=== PATIENT | male | born 1940 | race Caucasian/White ===

== ENCOUNTER 2023-11-28 08:32 | Emergency (ER) | payer OTHER, SELFPAY ==
[2023-11-28 08:35] VITALS: BP 171/72
[2023-11-28 08:36] VITALS: BP 171/72
[2023-11-28 08:40] VITALS: BMI 24.3
[2023-11-28 08:58] LABS: % Basophils 0.6 % (0-2); % Eosinophils 5.6 % (0-6); % Immature Granulocytes 0.4 % (0-0.5); % Lymphocytes 24.9 % (20.5-51.1); % Monocytes 9.5 % (1.7-9.3); Absolute Basophils 0.1 10^3/uL (0-0.2); Absolute Eosinophils 0.6 10^3/uL (0-0.7); Absolute Lymphocytes 2.7 10^3/uL (1.2-3.4); Absolute Neutrophils 6.4 10^3/uL (1.4-6.5); Hemoglobin 15.2 g/dL (13.0-18.0); Mean Corp Hgb Conc. 34.5 g/dL (33.0-37.0); Mean Corpuscular Hgb 32.2 pg (27.0-31.0); Mean Corpuscular Volume 93.2 fL (80.0-94.0); Mean Platelet Volume 12.2 fL (7.4-10.4); Nucleated Red Blood Cells % 0 % (-); Platelet Count 107 10^3/uL (130-400); Red Blood Cell Count 4.72 10^6/uL (4.70-6.10); Red Cell Dist. Width 12.4 % (11.5-14.5); White Blood Cell Count 10.8 10^3/uL (4.8-10.8)
[2023-11-28 09:00] VITALS: BP 150/79
[2023-11-28 09:25] LABS: Blood Urea Nitrogen 31 mg/dl (9-20); Calcium 9.6 mg/dl (8.4-10.2); Carbon Dioxide 26 mmol/L (22-30); Chloride 104 mmol/L (98-107); Estimated Creatinine Clearance 56 ml/min; Glucose 161 mg/dl (70-99); Sodium 141 mmol/L (135-145); eGFR > 60.00
[2023-11-28 10:00] VITALS: BP 158/81
[2023-11-28 11:00] VITALS: BP 173/73
--- NOTE | 2023-11-28 11:48 | ED.GENMED ---
History of Present Illness
General
Chief Complaint: Fainting/Passed Out
Source: patient and spouse
Exam Limitations: none
Time Seen by Provider: 11/28/23 08:34
History of Present Illness
History of Present Illness:
83-year-old male who presents after a syncopal episode in the bathroom. The patient states that he was urinating and got lightheaded. He then was on the ground and felt like he had to have a bowel movement. He admits he was having some abdominal
discomfort like he had to go to bathroom prior to this happening. He then went to sit up onto the toilet to have a bowel movement and fell again. States he did feel like he fell to his right flank. No shortness of breath. No abdominal pain. Did
suffer a laceration to his left forehead near where his glasses sit.
Past History
Past History
ED Past Medical History: CAD, HTN, Hypercholesterolemia and Other (Parkinson's, GERD, peptic ulcer disease)
ED Past Surgical History: Cardiac
Phy Exam
Physical Exam
Physical Exam:
CONSTITUTIONAL Patient alert and oriented to person, place and time. Well-appearing. Vital signs reviewed.
HEAD laceration noted to the area just medial to the left brow.
EYES eyelids normal to inspection, Pupils equally round and reactive to light, Extraocular muscles intact, Conjunctiva normal, Sclera normal.
NECK normal range of motion, Trachea midline, no jugular venous distention.
RESPIRATORY CHEST No respiratory distress noted, Chest expansion equal, Bilateral breath sounds clear.
CARDIOVASCULAR regular rate and rhythm, Heart sounds normal.
ABDOMEN abdomen nontender, Bowel sounds normal. No distention.
BACK normal inspection, no obvious deformities.
UPPER EXTREMITY range of motion normal, Motor strength normal, no cyanosis, no edema.
LOWER EXTREMITY range of motion normal, Motor strength normal, no cyanosis, no edema.
NEURO Speech normal, No focal motor deficits, [place] coma scale 15, Memory normal, Cranial Nerves intact to screening exam.
SKIN skin warm, dry, and normal in color.
PSYCHIATRIC patient oriented to person place and time, Normal affect.
Course
Orders/Labs/Results
Orders:
Orders
11/28/23 08:34
Electrocardiogram (*1) Urgent
Reason for Study: Syncope
EKG- Treatment ONCE
11/28/23 08:43
CT Head W/o Iv Contrast Urgent
Comment:
Reason For Exam: fall, syncope
11/28/23 08:49
Basic Metabolic Panel Urgent
Complete Blood Count/With Diff Urgent
Abnormal Lab Results
11/28/23
08:49
MCH 32.2 H pg
(27.0-31.0)
Plt Count 107 L 10^3/uL
(130-400)
MPV 12.2 H fL
(7.4-10.4)
Absolute Monos (auto) 1.0 H 10^3/uL
(0.1-0.6)
Monocytes % 9.5 H %
(1.7-9.3)
BUN 31 H mg/dl
(9-20)
Glucose 161 H mg/dl
(70-99)
11/28/23 08:49
11/28/23 08:49
Vital Signs
Initial and Last Documented VS:
Initial Vital Signs
Pulse Resp BP
65 15 171/72
11/28/23 08:35 11/28/23 08:35 11/28/23 08:35
Last Documented Vital Signs
Temp Pulse Resp BP Pulse Ox
97.6 F 55 15 173/73 98
11/28/23 08:36 11/28/23 11:00 11/28/23 11:00 11/28/23 11:00 11/28/23 10:09
Procedures
Laceration Closure
Face:
Status of Wound: clean
Size of Wound in cm: 1.5
Description of Wound Edges: ragged
Type of Closure: Dermabond-skin glue
MDM/Problems Addressed
MDM/Problems Addressed:
vasovagal syncope, head injury, facial laceration
*Radiology
Radiology exam reviewed: preliminary read by ED provider (no ICH) and radiology read reviewed
*Pulse Oximetry
Patient hypoxic: no
*EKG
Interpreted by ED Provider?: Yes
Interpretation: abnormal
Rate: normal
Rhythm: sinus
Egnar: left axis deviation
Ischemia: non-specific ST changes
*Vacuum Evaporation Operator Interpretation
Rate: normal
Interpretation: normal
Rhythm: sinus
*Critical Care Note
Total Time (30-74mins, 75-104mins- exclusive of procedures): Not Applicable
Data Reviewed
Source: patient and spouse
Patient Management
Escalation/DeEscalation of care consider admission/obs:
Patient appears well. Feels much better. Hemodynamically stable. Patient was ambulated and feels well. No associated chest pain or shortness of breath. No palpitations. Suspect vasovagal syncope while going to the bathroom.
ED Attending Note
-
Portions of this chart may have been created with voice recognition software.� Occasional wrong word or��sound alike� substitutions may have occurred due to the inherent limitations of voice recognition software.
Discharge Plan
Departure
Patient Disposition: Home (Routine Discharge)
Date of Disposition: 11/28/23
Time of Disposition: 11:48
Patient with high blood pressure during this ER visit?: Yes
Discharge Problem:
Syncope, Facial laceration
Instructions: Syncope (Fainting) (DC), Skin glue for minor cuts, BLOOD PRESSURE
Referrals:
Linda Allen MD [Family Provider] -
Activity Restrictions/Additional Instructions:
Return immediately for passing out episode, palpitations, chest pain, shortness of breath or any other concerns. Please see your doctor in the next 3 to 5 days for follow-up and reevaluation.
Interventions
Interventions:
*Risk Screen - Suicide Last Done: 11/28/23 08:40
*General Assessment Last Done: 11/28/23 08:43
*Neglect/Abuse Screening Last Done: 11/28/23 08:40
*ED COVID-19 Vaccine History Last Done: 11/28/23 08:40
ED- Cardiac Assessment Last Done: 11/28/23 08:40
ED- Neurological Assessment Last Done: 11/28/23 08:41
Discharge Date and Time
Print Language: [place]
[2023-11-28 11:55] VITALS: BP 149/77
== END 2023-11-28 12:04 | disposition home or self-care (01) ==
LOC: EMR 08:32
PROVIDERS: EMERGENCY PHYSICIAN Emergency Medicine; FAMILY PHYSICIAN Internal Medicine
DX: R55 Syncope and collapse (principal); S01.81XA Laceration without foreign body of other part of head, initial encounter; W19.XXXA Unspecified fall, initial encounter; I10 Essential (primary) hypertension
CPT/HCPCS: 99285; 12011; 70450; 80048; 85025; 93005

== ENCOUNTER 2023-12-11 20:07 | Emergency (ER) | payer OTHER, SELFPAY ==
[2023-12-11 20:10] VITALS: BP 146/83
[2023-12-11 20:28] LABS: % Basophils 0.2 % (0-2); % Eosinophils 0.3 % (0-6); % Immature Granulocytes 0.4 % (0-0.5); % Lymphocytes 8.7 % (20.5-51.1); % Monocytes 14.7 % (1.7-9.3); % Neutrophils 75.7 % (42.2-75.2); Absolute Immature Granulocytes 0.1 10^3/uL (0-0.05); Absolute Lymphocytes 1.1 10^3/uL (1.2-3.4); Absolute Monocytes 1.9 10^3/uL (0.1-0.6); Absolute Neutrophils 9.8 10^3/uL (1.4-6.5); Hemoglobin 13.9 g/dL (13.0-18.0); Mean Corp Hgb Conc. 34.8 g/dL (33.0-37.0); Mean Corpuscular Hgb 30.8 pg (27.0-31.0); Mean Corpuscular Volume 88.7 fL (80.0-94.0); Mean Platelet Volume 12.3 fL (7.4-10.4); Nucleated Red Blood Cells % 0 % (-); Platelet Count 97 10^3/uL (130-400); Red Blood Cell Count 4.51 10^6/uL (4.70-6.10); Red Cell Dist. Width 12.6 % (11.5-14.5); White Blood Cell Count 12.9 10^3/uL (4.8-10.8)
[2023-12-11 20:42] LABS: ALT (SGPT) 13 U/L (0-50); AST (SGOT) 33 U/L (17-59); Alkaline Phosphatase 54 U/L (38-126); Blood Urea Nitrogen 27 mg/dl (9-20); Calcium 9.3 mg/dl (8.4-10.2); Carbon Dioxide 20 mmol/L (22-30); Chloride 100 mmol/L (98-107); Glucose 150 mg/dl (70-99); Potassium 4.2 mmol/L (3.5-5.1); Sodium 136 mmol/L (135-145); Total Bilirubin 1.3 mg/dl (0.2-1.3); Total Protein 6.8 g/dl (6.3-8.2); eGFR > 60.00
--- NOTE | 2023-12-11 22:24 | ED.GENMED ---
History of Present Illness
General
Chief Complaint: Weakness
Time Seen by Provider: 12/11/23 22:24
History of Present Illness
History of Present Illness:
TIME OF INITIAL ENCOUNTER: 10:30 PM
HPI: The patient tested positive for COVID today. He was tested by his because of a cough. also says that he has not been acting right today and seems like he 'has been in the left field' has been hallucinating as well. The patient
offers no specific complaints. The says that he was here recently after a fall and had a CAT scan of the brain which was unremarkable for trauma.
EXAM:
GENERAL: Appears in no distress
HEENT: Moist oral mucosa
CARDIOVASCULAR: Regular rate and rhythm
PULMONARY: No respiratory distress, breathing is nonlabored, equal and clear breath sounds
ABDOMEN: Soft and nontender with no peritoneal signs
NEUROLOGIC: The patient has evidence of dementia, not oriented to month or place, strength is equal in all extremities
EXTREMITIES: Moves all extremities equally, no tenderness, no edema
PYSCHIATRIC: Very limited historian, poor insight and judgment
NUMBER AND COMPLEXITY OF PROBLEMS ADDRESSED AT THE ENCOUNTER
� Chronic conditions affecting care: Dementia, Parkinson's, hyperlipidemia, MD/CAD
� Acute Exacerbation and/or Progression of Chronic Illness: This is an acute problem
� Differential Diagnosis includes: Dehydration, PERFECTO, viral syndrome, psychosis, change in mental status due to viral syndrome
AMOUNT AND/OR COMPLEXITY OF DATA TO BE REVIEWED AND ANALYZED
� I performed an independent evaluation of and my interpretation is:
EKG:
CT:
X-rays: Chest x-ray shows no acute abnormality
Laboratory Studies: White count 12.9 mild lymphocytopenia noted, hemoglobin normal, bicarb 20, BUN 27
Other:
� Review of other/old records: I reviewed records, the patient was here 11/01/2023 after a fall and there was no intracranial hemorrhage by CT at that time
� Clinical information was obtained by an independent historian: I spoke to the
� Prescriptions/Medications Considered but not given: Consider/offered Paxlovid however the is concerned about potential medication interaction. We agreed to hold off on Paxlovid at this time.
� Further testing considered but not performed:
RISK OF COMPLICATIONS AND/OR MORBIDITY OR MORTALITY OF PATIENT MANAGEMENT
� Social determinants of health affecting care: Lives at home with
� Discussion with other providers:
� Escalation of care including admission/observation vs risk of discharge considered: Given the 's concern of increased confusion, will give IV fluids. I suspect the confusion is related to his age of 83 years and the fact
that he has a viral currently.
ANY OTHER UPDATES:
11:30 PM: The patient was given IV fluids. Chest x-ray clear. The reports improvement in his overall mental status. Room air sats hovered around 93 to 94% prior to discharge.
Past History
Past History
ED Past Medical History: CAD, HTN, Hypercholesterolemia and Other (Parkinson's, GERD, peptic ulcer disease)
ED Past Surgical History: Cardiac
Phy Exam
Physical Exam
Physical Exam:
See HPI
Course
Orders/Labs/Results
Orders:
Orders
12/11/23 20:18
Complete Blood Count/With Diff Urgent
Comprehensive Metabolic Panel Urgent
12/11/23 22:25
0.9% Sodium Chloride 1000 ml [Nss] 1,000 ml IV BOLUS
12/11/23 22:26
CR Chest Portable - 1 View Urgent
Comment:
Reason For Exam: positive COVID; leukocytosis
Reason Study Needs to be Portable: Unable to Transport
12/11/23 23:14
Ondansetron Injectable [Zofran] 4 mg .ROUTE .[facility]
12/11/23 23:15
Ondansetron Injectable [Zofran] 4 mg IV NOW STA
Abnormal Lab Results
12/11/23
20:18
WBC 12.9 H 10^3/uL
(4.8-10.8)
RBC 4.51 L 10^6/uL
(4.70-6.10)
Plt Count 97 L 10^3/uL
(130-400)
MPV 12.3 H fL
(7.4-10.4)
Abs Immat Gran (auto) 0.1 H 10^3/uL
(0-0.05)
Absolute Neuts (auto) 9.8 H 10^3/uL
(1.4-6.5)
Absolute Lymphs (auto) 1.1 L 10^3/uL
(1.2-3.4)
Absolute Monos (auto) 1.9 H 10^3/uL
(0.1-0.6)
Neutrophils % 75.7 H %
(42.2-75.2)
Lymphocytes % 8.7 L %
(20.5-51.1)
Monocytes % 14.7 H %
(1.7-9.3)
Carbon Dioxide 20 L mmol/L
(22-30)
BUN 27 H mg/dl
(9-20)
Glucose 150 H mg/dl
(70-99)
12/11/23 20:18
12/11/23 20:18
Vital Signs
Initial and Last Documented VS:
Initial Vital Signs
Temp Pulse Resp BP Pulse Ox
98.3 F 82 18 146/83 95
12/11/23 20:10 12/11/23 20:10 12/11/23 20:10 12/11/23 20:10 12/11/23 20:10
Last Documented Vital Signs
Temp Pulse Resp BP Pulse Ox
99.9 F 71 18 134/56 94
12/11/23 22:48 12/11/23 23:30 12/11/23 23:30 12/11/23 23:00 12/11/23 23:15
*Critical Care Note
Total Time (30-74mins, 75-104mins- exclusive of procedures): Not Applicable
ED Attending Note
-
Portions of this chart may have been created with voice recognition software.� Occasional wrong word or��sound alike� substitutions may have occurred due to the inherent limitations of voice recognition software.
Discharge Plan
Departure
Patient Disposition: Home (Routine Discharge)
Date of Disposition: 12/11/23
Time of Disposition: 23:35
Patient with high blood pressure during this ER visit?: Yes
Discharge Problem:
COVID-19
Instructions: COVID-19 ED
Referrals:
Linda Allen MD [Family Provider] -
Activity Restrictions/Additional Instructions:
Oxygen levels are fair and not low enough to require additional oxygen, white blood cell count is slightly high. BUN level is slightly high which could be seen with dehydration. We gave a liter of fluid. The chest x-ray shows no sign of
pneumonia. Return here if worse or any other concerns such as shortness of breath.
Interventions
Interventions:
*Risk Screen - Suicide Last Done: 12/11/23 20:13
*General Assessment Last Done: 12/11/23 20:10
*Neglect/Abuse Screening Last Done: 12/11/23 20:10
ED- Fall Risk Assessment Last Done: 12/11/23 22:47
ED- Cardiac Assessment Last Done: 12/11/23 22:47
ED- Neurological Assessment Last Done: 12/11/23 22:47
ED- Pulmonary Assessment Last Done: 12/11/23 22:47
Discharge Date and Time
Print Language: AZER[place]
[2023-12-11] MEDS: NSS 1000 IV (22:41)
[2023-12-11 22:42] VITALS: BP 139/56
[2023-12-11 23:00] VITALS: BP 134/56
[2023-12-11] MEDS: ZOFRAN 4 MG IV (23:15)
[2023-12-12] VITALS: BP 106/70
== END 2023-12-12 00:08 | disposition home or self-care (01) ==
LOC: EMR 20:07
PROVIDERS: Emergency Medicine; EMERGENCY PHYSICIAN Emergency Medicine; FAMILY PHYSICIAN Internal Medicine
DX: U07.1 COVID-19 (principal); F03.90 Unspecified dementia, unspecified severity, without behavioral disturbance, psychotic disturbance, mood disturbance, and anxiety; G20.A1 Parkinson's disease without dyskinesia, without mention of fluctuations; F02.80 Dementia in other diseases classified elsewhere, unspecified severity, without behavioral disturbance, psychotic disturbance, mood disturbance, and anxiety; I25.10 Atherosclerotic heart disease of native coronary artery without angina pectoris; E78.00 Pure hypercholesterolemia, unspecified; I10 Essential (primary) hypertension; K21.9 Gastro-esophageal reflux disease without esophagitis; I25.2 Old myocardial infarction; Z91.81 History of falling; Z87.11 Personal history of peptic ulcer disease; Z88.1 Allergy status to other antibiotic agents; Z88.0 Allergy status to penicillin
CPT/HCPCS: 99284; 96374; 96361; 71045; 80053; 85025